=== PATIENT | male | born 1945 | race Caucasian/White ===

== ENCOUNTER 2016-12-11 16:52 | Emergency (ER) | payer MEDICARE ==
[2016-12-11 18:40] LABS: BASOPHILS 0.1 % (0.0-2.0); EOSINOPHILS 0.1 % (0-7); HEMATOCRIT 43.6 % (42.0-54.0); HEMOGLOBIN 15.1 g/dL (13.5-17.5); IMMATURE GRANULOCYTES 0.8 % (0-5); LYMPHOCYTES 7.4 % (15-50); MCH 31.5 pg (26.0-34.0); MCHC 34.6 g/dL (31.0-37.0); MCV 90.8 fL (80.0-100.0); MEAN PLATELET VOLUME 10.6 fL (7.4-10.4); MONOCYTES 14.1 % (2-11); NEUTROPHILS 77.5 % (40-80); PLATELET COUNT 263 10x3/uL (130-400); RDW 12.3 % (11.5-14.5); WBC 11.4 10x3/uL (4.8-10.8)
[2016-12-11 19:08] LABS: ALBUMIN 3.2 g/dL (3.4-5.0); ALKALINE PHOSPHATASE 74 U/L (46-116); ALT (SGPT) 75 U/L (10-68); BILIRUBIN - TOTAL 1.34 mg/dL (0.2-1.3); CALC OSMOLALITY 274 mosm/kg (275-300); CALCIUM 8.7 mg/dL (8.5-10.1); CHLORIDE - SERUM 97 mmol/L (98-107); CREATININE - SERUM 1.4 mg/dL (0.6-1.3); GLUCOSE 125 mg/dL (74-106); PROTEIN - SERUM 7.6 g/dL (6.4-8.2); SODIUM 136 mmol/L (136-145); UREA NITROGEN 19 mg/dL (7-18); eGFR NON AFRICAN AMERICAN 53 mL/min (90-120)
[2016-12-11 19:13] LABS: TROPONIN-I < 0.017 ng/mL (0.000-0.060)
== END 2016-12-11 22:43 | disposition home or self-care (01) ==
LOC: D.ER 16:52
PROVIDERS: Emergency Medicine
DX: J18.9 Pneumonia, unspecified organism (principal); I44.4 Left anterior fascicular block